=== PATIENT | female | born 1975 | race Caucasian/White ===

== ENCOUNTER 2017-04-18 22:41 | Emergency (ER) | payer OTHER ==
[2017-04-18 23:59] LABS: Hematocrit 36 % (35-47); Hemoglobin 12.3 g/dl (12.0-16.0); Mean Corpuscular HGB Conc 34 g/dl (31-36); Mean Corpuscular Hemoglobin 30 pg (27-31); Mean Corpuscular Volume 90 fL (80-97); Mean Platelet Volume 9 um3 (7.4-10.4); Red Blood Count 4.05 10^6/ul (4.0-5.4); Red Cell Distribution Width 12 % (10.5-15); White Blood Count 7.2 10^3/ul (3.5-10.8)
[2017-04-19 00:11] LABS: Albumin 3.9 g/dL (3.2-5.2); BUN/Creatinine Ratio 23.8 (8-20); Calcium 9.5 mg/dL (8.6-10.3); EGFR African American 96.1 (>60); EGFR Non-African American 74.7 (>60); Globulin 2.8 g/dL (2-4); Potassium 3.5 mmol/L (3.5-5.0); Total Bilirubin 0.3 mg/dL (0.2-1.0); Total Protein 6.7 g/dL (6.4-8.9)
[2017-04-19] MEDS ORDERED: Ibuprofen TAB* 600 MG ONE (01:54)
[2017-04-19] MEDS ORDERED: Ibuprofen TAB* 600 MG PO ONE (01:56)
[2017-04-19 02:13] VITALS: BP 109/67
--- NOTE | 2017-04-19 08:34 | RAD ---
INDICATION: Chest pain COMPARISON: None TECHNIQUE: PA and lateral dual-energy views were obtained. FINDINGS: Bones/Soft Tissues: There are no acute bony findings. Cardiomediastinal: The cardiomediastinal silhouette is normal. Lungs: There are no infiltrates. Mild linear change in the medial right lung apex is most consistent with minor scarring. Pleura: There are no pleural effusions. Other: None IMPRESSION: NO ACTIVE DISEASE.
--- NOTE | 2017-04-27 21:46 | ED ---
Caroline Suárez Emily, scribed for Evans Finnegan MD on 04/18/17 at 2354 . HPI Chest Pain - HPI Summary HPI Summary: This patient is a 41 year old F presenting to [facility] accompanied by family with a chief complaint of intermittent left-sided CP that began yesterday. The CC is described as sharp. The patient rates the pain 7/10 in severity. Symptoms aggravated by deep breaths. Symptoms alleviated by nothing. Patient reports numbness through left jaw. Patient denies fever, chills, cough, wheezing, and LE pain. Pt denies hx of heart disease and asthma. Patients medications reviewed this visit. - History of Current Complaint Chief Complaint: EDChestWallPain Time Seen by Provider: 04/18/17 23:19 Hx Obtained From: Patient Onset/Duration: Started Days Ago, Still Present Timing: Constant Initial Severity: Moderate Current Severity: Moderate Pain Intensity: 7 Pain Scale Used: 0-10 Numeric Character: Other: - Sharp Aggravating Factor(s): Deep Breaths Alleviating Factor(s): Nothing Associated Signs and Symptoms: Positive: Other: - Positive numbness through left jaw. Negative fever, chills, cough, wheezing, and LE pain PMH/Surg Hx/FS Hx/Imm Hx Previously Healthy: Yes Endocrine/Hematology History: Denies: Hx Diabetes Cardiovascular History: Denies: Hx Hypertension Infectious Disease History: No Infectious Disease History: Denies: Traveled Outside the [place] in Last 30 Days - Family History Family History: Positive [place]. Negative PE. - Social History Occupation: Employed Full-time Lives: With Family Alcohol Use: Daily Substance Use Type: Reports: None Smoking Status (MU): Never Smoked Tobacco Review of Systems Negative: Fever, Chills Positive: Chest Pain Positive: Other - Negative wheezing. Negative: Cough Positive: Other - Negative LE pain Neurological: Other - Positive numbnes in left jaw All Other Systems Reviewed And Are Negative: Yes Physical Exam - Summary Physical Exam Summary: Appearance: Well-appearing, Well-nourished Skin: Warm, Dry, No rash Eyes: Normal, PERRL, EOMI, sclera anicteric ENT: Normal Neck: Supple, nontender Respiratory: Clear to auscultation Cardiovascular: S1, S2, no murmur, no rub, no gallop Abdomen: Soft, nontender, no organomegaly Bowel sounds: Present Musculoskeletal: Normal, Strength/ROM Intact, no edema, pulses symmetrical Neurological: Normal, A&Ox3, cranial nerves 2-12 wnl, follows commands, gait not tested, sensation intact to pin and light touch Psychiatric: affect normal, behavior appropriate, dressed appropriately, judgment intact Triage Information Reviewed: Yes Vital Signs On Initial Exam: Initial Vitals Temp Pulse Resp BP Pulse Ox 99.4 F 70 18 126/73 100 04/18/17 22:44 04/18/17 22:44 04/18/17 22:44 04/18/17 22:44 04/18/17 22:44 Vital Signs Reviewed: Yes - [place] Coma Scale Coma Scale Total: 15 Diagnostics - Vital Signs Vital Signs Temp Pulse Resp BP Pulse Ox 04/18/17 22:44 99.4 F 70 18 126/73 100 - Laboratory Lab Results: Lab Results 04/18/17 04/18/17 04/18/17 Range/Units 23:45 23:45 23:45 WBC 7.2 (3.5-10.8) 10^3/ul RBC 4.05 (4.0-5.4) 10^6/ul Hgb 12.3 (12.0-16.0) g/dl Hct 36 (35-47) % MCV 90 (80-97) fL MCH 30 (27-31) pg MCHC 34 (31-36) g/dl RDW 12 (10.5-15) % Plt Count 221 (150-450) 10^3/ul MPV 9 (7.4-10.4) um3 Neut % (Auto) 62.4 (38-83) % Lymph % (Auto) 25.5 (25-47) % [place] % (Auto) 7.7 (1-9) % Eos % (Auto) 3.9 (0-6) % Baso % (Auto) 0.5 (0-2) % Absolute Neuts (auto) 4.5 (1.5-7.7) 10^3/ul Absolute Lymphs (auto) 1.8 (1.0-4.8) 10^3/ul Absolute Monos (auto) 0.6 (0-0.8) 10^3/ul Absolute Eos (auto) 0.3 (0-0.6) 10^3/ul Absolute Basos (auto) 0 (0-0.2) 10^3/ul Absolute Nucleated RBC 0 10^3/ul Nucleated RBC % 0 D-Dimer, Quantitative < 200 (Less Than 230) ng/mL Sodium 136 (133-145) mmol/L Potassium 3.5 (3.5-5.0) mmol/L Chloride 106 (101-111) mmol/L Carbon Dioxide 27 (22-32) mmol/L Anion Gap 3 (2-11) mmol/L BUN 20 (6-24) mg/dL Creatinine 0.84 (0.51-0.95) mg/dL Est GFR ( Amer) 96.1 (>60) Est GFR (Non-Af Amer) 74.7 (>60) BUN/Creatinine Ratio 23.8 H (8-20) Glucose 98 (70-100) mg/dL Calcium 9.5 (8.6-10.3) mg/dL Total Bilirubin 0.30 (0.2-1.0) mg/dL AST 13 (13-39) U/L ALT 11 (7-52) U/L Alkaline Phosphatase 43 (34-104) U/L Troponin I 0.00 (<0.04) ng/mL Total Protein 6.7 (6.4-8.9) g/dL Albumin 3.9 (3.2-5.2) g/dL Globulin 2.8 (2-4) g/dL Albumin/Globulin Ratio 1.4 (1-3) Lipase 23 (11.0-82.0) U/L Result Diagrams: 04/18/17 23:45 04/18/17 23:45 Lab Statement: Any lab studies that have been ordered have been reviewed, and results considered in the medical decision making process. - Radiology CXR Radiology Interpretation Completed By: ED Physician - CXR read by ED physician is normal - EKG 2302 Cardiac Rate: NL EKG Rhythm: Sinus Rhythm - [address] Segment: Normal Chest Pain Course/Dx - Course Assessment/Plan: This patient is a 41 year old F presenting to [facility] accompanied by family with a chief complaint of intermittent left-sided CP that began yesterday. The CC is described as sharp. The patient rates the pain 7/10 in severity. Symptoms aggravated by deep breaths. Symptoms alleviated by nothing. Patient reports numbness through left jaw. Patient denies fever, chills , cough, wheezing, and LE pain. Pt denies hx of heart disease and asthma. Patients medications reviewed this visit. Physical Exam Findings. Nml. Medical Decision Making. An EKG taken at 2302 reveals nml sinus rhythm at [address] segment. CXR read by ED physician is normal. Bloodwork was within normal limits. Impression: atypical chest pain with possible anxiety disorder. Patient will be discharged with follow up from PCP. The patient is agreeable with this plan. - Diagnoses Provider Diagnoses: Atypical chest pain Discharge - Discharge Plan Condition: Good Disposition: HOME Patient Education Materials: Chest Pain (ED) Referrals: Non Staff,Doctor [Primary Care Provider] - The documentation as recorded by the Caroline villegas Emily accurately reflects the service I personally performed and the decisions made by me, Evans Finnegan MD.
== END 2017-04-19 02:12 | disposition home or self-care (01) ==
LOC: ED 22:41
DX: R07.89 Other chest pain (principal)
CPT/HCPCS: 36415; 71020; 80053; 83690; 84484; 85025; 85379; 93005; A9270-GY